=== PATIENT | female | born 1940 | race Caucasian/White ===

== ENCOUNTER 2017-04-04 17:40 | Inpatient (IN) | payer OTHER ==
[~2017-04-04] VITALS: Ht 152.4 cm; Wt 87.3 kg
[~2017-04-04 17:40] MED LIST: ALENDRONATE SOD35 MG PO; AMARYL1 MG PO; ARICEPT10 MG; ATORVASTATIN CA10 MG PO; AUGMENTIN875 MG PO; CEFDINIR300 MG PO; CENTRUM SILVER1 EAC3 PO; CYANOCOBALAM1000 MCG PO; DONEPEZIL HCL10 MG PO; FISH OIL 1,0001 EAC7 PO; GLIMEPIRIDE1 MG PO; I COOL PO; KEFLEX500 MG PO; LANTUS 3 M100 UNITS1 SC; LEVAQUIN750 MG PO; LEVETIRACETAM250 MG PO; LO-DOSE ASPIRIN81 M1 PO; METFORMIN HCL500 MG PO; PAXIL20 MG PO; RISPERDAL0.5 MG PO; RISPERIDONE0.5 MG PO
[2017-04-04 19:40] LABS: HEMATOCRIT 40.4 % (36.0-46.0); MCH 31.7 PG (29.0-34.0); MCHC 34.2 G/DL (30.0-36.0); MCV 92.7 FL (83-99); MEAN PLAT.VOLUME 9.6 uM^3 (9.5-12.4); PLATELET COUNT 363 K/uL (156-360); RBC DIS.WIDTH-CV 11.4 % (11.8-14.6); RBC DIS.WIDTH-SD 38.7 % (39-53); RED BLOOD COUNT 4.36 M/uL (3.80-5.20); WHITE BLOOD COUNT 17.1 K/uL (4.1-10.2)
[2017-04-04 19:55] LABS: CHLORIDE 107 mEq/L (99-109); POTASSIUM 4.4 mEq/L (3.7-5.4); SODIUM 142 mEq/L (136-147)
[2017-04-04 19:56] LABS: GLUCOSE 127 mg/dL (70-99)
[2017-04-04 19:58] LABS: ANION GAP 13 MEQ/L (2-14)
[2017-04-04 20:00] LABS: GFR ESTIMATE (CALCULATED) > 59 mL/min/
[2017-04-04 20:01] LABS: UREA NITROGEN (BUN) 11 mg/dL (9-23)
[2017-04-04 22:06] LABS: ADD MIUA? YES; BILIRUBIN NEGATIVE; BLOOD NEGATIVE; COLOR YELLOW ((YELLOW)); GLUCOSE (STRIP) NEGATIVE; KETONES NEGATIVE; LEUKOCYTES MODERATE; NITRITE POSITIVE; PROTEIN (STRIP) NEGATIVE; SPECIFIC GRAVITY 1.017 (1.000-1.030); UROBILINOGEN 0.2 MG/DL (0.2-1.0)
[2017-04-04 22:27] LABS: BACTERIA RARE /HPF; EPITHELIAL CELLS RARE /HPF; HYALINE CASTS 0-5 /LPF; MUCUS 3+ /LPF; RED BLOOD CELLS 0-5 /HPF (0-5); WHITE BLOOD CELLS TNTC /HPF (0-5)
[2017-04-05] MEDS ORDERED: KEPPRA100 MG/1 M PO (00:06)
[2017-04-05] MEDS ORDERED: NAMENDA5 MG PO (00:08)
[2017-04-05 01:22] LABS: TOTAL BILIRUBIN 0.4 mg/dL (0.0-1.0)
[2017-04-05 01:23] LABS: ALKALINE PHOSPHATASE 66 IU/L (3-129)
[2017-04-05 01:26] LABS: DIRECT BILIRUBIN 0.2 mg/dL (0.0-0.3)
[2017-04-05 01:51] VITALS: BP 134/71
[2017-04-05 03:04] LABS: HEMATOCRIT 39.8 % (36.0-46.0); MCH 31.3 PG (29.0-34.0); MCHC 32.9 G/DL (30.0-36.0); MEAN PLAT.VOLUME 10.2 uM^3 (9.5-12.4); PLATELET COUNT 294 K/uL (156-360); RBC DIS.WIDTH-CV 11.4 % (11.8-14.6); RBC DIS.WIDTH-SD 39.4 % (39-53); RED BLOOD COUNT 4.19 M/uL (3.80-5.20); WHITE BLOOD COUNT 17.9 K/uL (4.1-10.2)
[2017-04-05 03:16] LABS: CHLORIDE 107 mEq/L (99-109); SODIUM 141 mEq/L (136-147)
[2017-04-05 03:18] LABS: GLUCOSE 144 mg/dL (70-99)
[2017-04-05 03:19] LABS: ANION GAP 13 MEQ/L (2-14)
[2017-04-05 03:21] LABS: GFR ESTIMATE (CALCULATED) > 59 mL/min/
[2017-04-05 03:22] LABS: UREA NITROGEN (BUN) 11 mg/dL (9-23)
[2017-04-05 08:00] VITALS: BP 131/60
[2017-04-05 15:51] VITALS: BP 148/64
[2017-04-06 00:03] VITALS: BP 128/59
[2017-04-06 05:42] VITALS: BP 138/63
[2017-04-06 06:09] LABS: HEMATOCRIT 35.9 % (36.0-46.0); MCH 32.7 PG (29.0-34.0); MCHC 34.3 G/DL (30.0-36.0); MCV 95.5 FL (83-99); MEAN PLAT.VOLUME 9.8 uM^3 (9.5-12.4); PLATELET COUNT 271 K/uL (156-360); RBC DIS.WIDTH-CV 11.5 % (11.8-14.6); RBC DIS.WIDTH-SD 40.3 % (39-53); RED BLOOD COUNT 3.76 M/uL (3.80-5.20); WHITE BLOOD COUNT 10.2 K/uL (4.1-10.2)
[2017-04-06 06:36] LABS: ANION GAP 9 MEQ/L (2-14); CHLORIDE 107 MEQ/L (99-109); GFR ESTIMATE (CALCULATED) > 59 mL/min/; GLUCOSE 111 mg/dL (70-99); SAMPLE HEMOLYSIS CHECK 0; SAMPLE ICTERIC CHECK 0; SAMPLE LIPEMIA CHECK 0; SODIUM 142 MEQ/L (136-147); UREA NITROGEN (BUN) 5 mg/dL (9-23)
[2017-04-06 06:37] LABS: POTASSIUM 3.9 MEQ/L (3.7-5.4)
[2017-04-06 06:44] VITALS: BP 132/62
[2017-04-06 11:03] VITALS: BP 145/67
[2017-04-06 15:28] VITALS: BP 110/57
[2017-04-06 23:26] VITALS: BP 124/60
[2017-04-07 06:40] VITALS: BP 130/64
== END 2017-04-07 13:08 | disposition home health service (06) | DRG 101 ==
LOC: EME 17:40 → 5EAST 04-05 00:36 → EDOF 04-05 00:36 → ENRESERV 04-05 00:37 → 5EAST 04-05 01:51 → ENPENDDIS 04-07 → 5EAST 04-07 13:08
PROVIDERS: Hospitalist; Internal Medicine; Physician Assistant
DX: G40.409 Other generalized epilepsy and epileptic syndromes, not intractable, without status epilepticus (principal); N39.0 Urinary tract infection, site not specified; R74.0 Nonspecific elevation of levels of transaminase and lactic acid dehydrogenase [LDH]; R53.1 Weakness; B36.9 Superficial mycosis, unspecified; E11.9 Type 2 diabetes mellitus without complications; E78.5 Hyperlipidemia, unspecified; I10 Essential (primary) hypertension; G30.1 Alzheimer's disease with late onset; F02.80 Dementia in other diseases classified elsewhere, unspecified severity, without behavioral disturbance, psychotic disturbance, mood disturbance, and anxiety; J45.909 Unspecified asthma, uncomplicated; F32.9 Major depressive disorder, single episode, unspecified; R29.6 Repeated falls; Z79.82 Long term (current) use of aspirin; Z82.49 Family history of ischemic heart disease and other diseases of the circulatory system
CPT/HCPCS: 70450; 71010; 80048; 80076; 81003; 83605; 85027; 87040; 94799; 95819; 99281; 99285; J0696; J1644; J1953; J2060; J7030; J7050

== ENCOUNTER 2017-12-08 11:05 | Inpatient (IN) | payer OTHER ==
[~2017-12-08] VITALS: Ht 167.6 cm; Wt 51.4 kg
[~2017-12-08 11:05] MED LIST changes: +KEPPRA100 MG/1 M PO; +NAMENDA5 MG PO
[2017-12-08 12:33] LABS: BASOPHIL (%) 0.3 % (0-1); EOSINOPHIL (%) 0.8 % (0-5); EOSINOPHIL COUNT 0.1 K/uL (0-0.3); HEMATOCRIT 39.9 % (36.0-46.0); HEMOGLOBIN 13.7 G/DL (11.9-15.5); IMMATURE GRANULOCYTE (%) 0.4 % (0.0-0.7); LYMPHOCYTE (%) 13.4 % (15-42); LYMPHOCYTE COUNT 1.2 K/uL (1.0-2.8); MCH 31.9 PG (29.0-34.0); MCHC 34.3 G/DL (30.0-36.0); MONOCYTE (%) 6.6 % (3-12); MONOCYTE COUNT 0.6 K/uL (0-0.8); NEUTROPHIL (%) 78.5 % (45-76); NEUTROPHIL COUNT 7.1 K/uL (1.8-6.4); PLATELET COUNT 256 K/uL (156-360); RBC DIS.WIDTH-CV 11.7 % (11.8-14.6); RED BLOOD COUNT 4.29 M/uL (3.80-5.20)
[2017-12-08 12:44] LABS: CHLORIDE 106 mEq/L (99-109); POTASSIUM 4.5 mEq/L (3.7-5.4); SODIUM 140 mEq/L (136-147)
[2017-12-08 12:46] LABS: GLUCOSE 147 mg/dL (70-99)
[2017-12-08 12:50] LABS: CREATININE 0.7 mg/dL (0.6-1.3); GFR ESTIMATE (CALCULATED) > 59 mL/min/; UREA NITROGEN (BUN) 14 mg/dL (9-23)
[2017-12-08 12:52] LABS: CREATINE KINASE 45 IU/L (1-294); TOTAL CK 45 IU/L (1-294)
[2017-12-08 12:58] LABS: CK-MB 1.7 ng/mL (0.0-4.9); CKMB RELATIVE INDEX 3.8 (0.0-3.9)
[2017-12-08 14:36] LABS: APPEARANCE SL.HAZY ((CLEAR)); BILIRUBIN NEGATIVE; BLOOD NEGATIVE; COLOR YELLOW ((YELLOW)); GLUCOSE (STRIP) NEGATIVE; KETONES NEGATIVE; LEUKOCYTES LARGE; NITRITE NEGATIVE; PROTEIN (STRIP) NEGATIVE; UROBILINOGEN 0.2 MG/DL (0.2-1.0)
[2017-12-08 14:45] LABS: BACTERIA RARE /HPF; EPITHELIAL CELLS NONE SEEN /HPF; HYALINE CASTS 0-5 /LPF; MUCUS TRACE /LPF; WHITE BLOOD CELLS TNTC /HPF (0-5)
[2017-12-08] MEDS ORDERED: B-121000 MC2 PO (15:18)
[2017-12-08 17:18] VITALS: BP 161/63
[2017-12-08 19:07] VITALS: BP 106/63
[2017-12-09] VITALS (7 sets, daily range): BP systolic 96–120; BP diastolic 48–68
[2017-12-09 05:52] LABS: HEMATOCRIT 37.6 % (36.0-46.0); HEMOGLOBIN 12.3 G/DL (11.9-15.5); MCH 30.8 PG (29.0-34.0); MCHC 32.7 G/DL (30.0-36.0); PLATELET COUNT 261 K/uL (156-360); RBC DIS.WIDTH-CV 11.7 % (11.8-14.6); RBC DIS.WIDTH-SD 40.3 % (39-53); WHITE BLOOD COUNT 10.2 K/uL (4.1-10.2)
[2017-12-09 06:16] LABS: ALBUMIN 3.4 G/DL (3.2-4.8); ALKALINE PHOSPHATASE 49 IU/L (3-129); ALT (GPT) 63 IU/L (3-49); AST (GOT) 43 IU/L (2-34); CHLORIDE 104 MEQ/L (99-109); CREATININE 0.6 MG/DL (0.6-1.3); GFR ESTIMATE (CALCULATED) > 59 mL/min/; GLUCOSE 133 mg/dL (70-99); POTASSIUM 3.9 MEQ/L (3.7-5.4); SODIUM 141 MEQ/L (136-147); TOTAL BILIRUBIN 0.6 MG/DL (0.0-1.0); TOTAL PROTEIN 5.8 G/DL (6.4-8.3); UREA NITROGEN (BUN) 15 mg/dL (9-23)
[2017-12-10 03:39] VITALS: BP 98/54
[2017-12-10 05:54] LABS: BASOPHIL (%) 0.4 % (0-1); EOSINOPHIL (%) 3.1 % (0-5); EOSINOPHIL COUNT 0.2 K/uL (0-0.3); HEMATOCRIT 36.5 % (36.0-46.0); IMMATURE GRANULOCYTE (%) 0.3 % (0.0-0.7); LYMPHOCYTE (%) 27.7 % (15-42); LYMPHOCYTE COUNT 2.1 K/uL (1.0-2.8); MCH 31.3 PG (29.0-34.0); MCHC 32.9 G/DL (30.0-36.0); MCV 95.3 FL (83-99); MONOCYTE (%) 11.3 % (3-12); MONOCYTE COUNT 0.8 K/uL (0-0.8); NEUTROPHIL (%) 57.2 % (45-76); NEUTROPHIL COUNT 4.2 K/uL (1.8-6.4); PLATELET COUNT 242 K/uL (156-360); RBC DIS.WIDTH-CV 11.7 % (11.8-14.6); RBC DIS.WIDTH-SD 40.6 % (39-53); RED BLOOD COUNT 3.83 M/uL (3.80-5.20); WHITE BLOOD COUNT 7.4 K/uL (4.1-10.2)
[2017-12-10 06:17] LABS: CHLORIDE 109 MEQ/L (99-109); CREATININE 0.6 MG/DL (0.6-1.3); GFR ESTIMATE (CALCULATED) > 59 mL/min/; GLUCOSE 150 mg/dL (70-99); POTASSIUM 4.1 MEQ/L (3.7-5.4); SODIUM 141 MEQ/L (136-147); UREA NITROGEN (BUN) 11 mg/dL (9-23)
[2017-12-10 07:46] VITALS: BP 132/60
[2017-12-10] MEDS ORDERED: CEFTIN500 MG PO (12:44)
== END 2017-12-10 13:22 | disposition home or self-care (01) | DRG 101 ==
LOC: EME 11:05 → 3EAST 15:21 → EDOF 15:21 → ENRESERV 15:24 → 3EAST 17:18
PROVIDERS: Emergency Medicine; Internal Medicine
DX: G40.909 Epilepsy, unspecified, not intractable, without status epilepticus (principal); N39.0 Urinary tract infection, site not specified; G30.9 Alzheimer's disease, unspecified; F02.80 Dementia in other diseases classified elsewhere, unspecified severity, without behavioral disturbance, psychotic disturbance, mood disturbance, and anxiety; E11.9 Type 2 diabetes mellitus without complications; Z79.82 Long term (current) use of aspirin; Z79.899 Other long term (current) drug therapy
CPT/HCPCS: 80048; 80053; 81003; 82550; 82553; 82948; 85025; 85027; 92610 GN; 94799; 99281; 99285; J0696; J1650; J1953; J2060; J7050

== ENCOUNTER 2017-12-14 11:59 | Inpatient (IN) | payer OTHER ==
[~2017-12-14] VITALS: Ht 152.4 cm; Wt 72.0 kg
[~2017-12-14 11:59] MED LIST changes: +B-121000 MC2 PO; +CEFTIN500 MG PO
[2017-12-14 13:46] LABS: HEMATOCRIT 42.7 % (36.0-46.0); HEMOGLOBIN 14.5 G/DL (11.9-15.5); MCH 32.2 PG (29.0-34.0); MCV 94.7 FL (83-99); PLATELET COUNT 277 K/uL (156-360); RBC DIS.WIDTH-CV 11.8 % (11.8-14.6); RBC DIS.WIDTH-SD 40.6 % (39-53); RED BLOOD COUNT 4.51 M/uL (3.80-5.20); WHITE BLOOD COUNT 9.5 K/uL (4.1-10.2)
[2017-12-14 13:54] LABS: CHLORIDE 104 mEq/L (99-109); POTASSIUM 4.5 mEq/L (3.7-5.4); SODIUM 141 mEq/L (136-147)
[2017-12-14 13:56] LABS: GLUCOSE 128 mg/dL (70-99)
[2017-12-14 14:00] LABS: CREATININE 0.7 mg/dL (0.6-1.3); GFR ESTIMATE (CALCULATED) > 59 mL/min/
[2017-12-14 14:01] LABS: UREA NITROGEN (BUN) 15 mg/dL (9-23)
[2017-12-14 14:07] LABS: TROP-I INTERPRETATION NEGATIVE; TROPONIN-I < 0.01 ng/mL (0.0-0.30)
[2017-12-14 14:26] LABS: APPEARANCE CLEAR ((CLEAR)); BILIRUBIN NEGATIVE; BLOOD NEGATIVE; COLOR YELLOW ((YELLOW)); GLUCOSE (STRIP) NEGATIVE; KETONES NEGATIVE; LEUKOCYTES NEGATIVE; NITRITE NEGATIVE; PROTEIN (STRIP) NEGATIVE; SPECIFIC GRAVITY 1.019 (1.000-1.030); UROBILINOGEN 0.2 MG/DL (0.2-1.0)
[2017-12-14 18:19] VITALS: BP 136/83
[2017-12-14 19:04] VITALS: BP 122/87
[2017-12-14 23:20] VITALS: BP 114/60
[2017-12-15 04:35] VITALS: BP 125/57
[2017-12-15 05:23] LABS: HEMATOCRIT 36.6 % (36.0-46.0); MCH 31.5 PG (29.0-34.0); MCHC 32.8 G/DL (30.0-36.0); MCV 96.1 FL (83-99); PLATELET COUNT 249 K/uL (156-360); RBC DIS.WIDTH-CV 11.9 % (11.8-14.6); RBC DIS.WIDTH-SD 41.5 % (39-53); RED BLOOD COUNT 3.81 M/uL (3.80-5.20); WHITE BLOOD COUNT 8.5 K/uL (4.1-10.2)
[2017-12-15 05:42] LABS: ALBUMIN 3.1 G/DL (3.2-4.8); ALKALINE PHOSPHATASE 49 IU/L (3-129); ALT (GPT) 54 IU/L (3-49); AST (GOT) 37 IU/L (2-34); CHLORIDE 109 MEQ/L (99-109); CREATININE 0.5 MG/DL (0.6-1.3); GFR ESTIMATE (CALCULATED) > 59 mL/min/; GLUCOSE 119 mg/dL (70-99); POTASSIUM 3.9 MEQ/L (3.7-5.4); SODIUM 141 MEQ/L (136-147); TOTAL BILIRUBIN 0.4 MG/DL (0.0-1.0); TOTAL PROTEIN 5.7 G/DL (6.4-8.3); UREA NITROGEN (BUN) 11 mg/dL (9-23)
[2017-12-15 07:50] VITALS: BP 123/61
[2017-12-15 11:34] VITALS: BP 122/56
[2017-12-15 15:29] VITALS: BP 120/58
[2017-12-15 20:10] VITALS: BP 127/60
[2017-12-16 00:55] VITALS: BP 138/61
[2017-12-16 04:32] VITALS: BP 139/74
[2017-12-16 07:48] VITALS: BP 133/63
[2017-12-16 10:58] VITALS: BP 149/78
[2017-12-16] MEDS ORDERED: KEPPRA100 MG/1 M PO (11:50)
[2017-12-16] MEDS ORDERED: VIMPAT50 MG PO (11:50)
[2017-12-16] MEDS ORDERED: VIMPAT10 MG/1 ML PO (12:37)
== END 2017-12-16 13:20 | disposition home or self-care (01) | DRG 100 ==
LOC: EME 11:59 → 4EAST 15:32 → EDOF 15:32 → ENRESERV 15:35 → 4EAST 18:08 → ENPENDDIS 12-16 → 4EAST 12-16 10:10
PROVIDERS: Emergency Medicine; Internal Medicine
DX: G40.901 Epilepsy, unspecified, not intractable, with status epilepticus (principal); G93.40 Encephalopathy, unspecified; E87.2 Acidosis; G30.9 Alzheimer's disease, unspecified; F02.80 Dementia in other diseases classified elsewhere, unspecified severity, without behavioral disturbance, psychotic disturbance, mood disturbance, and anxiety; E11.9 Type 2 diabetes mellitus without complications; I10 Essential (primary) hypertension; E78.5 Hyperlipidemia, unspecified; F32.9 Major depressive disorder, single episode, unspecified; Z87.440 Personal history of urinary (tract) infections; Z79.82 Long term (current) use of aspirin; Z90.710 Acquired absence of both cervix and uterus
CPT/HCPCS: 70450; 71045; 80048; 80053; 81003; 82607; 82948; 83605; 84484; 85027; 87040; 87086; 92610 GN; 95819; 99281; 99285; J0696; J1644; J1953; J2060; J7030; J7050